=== PATIENT | female | born 1960 ===

== ENCOUNTER 2016-11-05 10:30 | Day surgery (SDC) | payer BC ==
--- NOTE | ~2016-11-05 | EGD ---
EGD REPORT [facility] [address] [address] NAME: YOLETTE GALDAMEZ : 62 STATUS : REG [facility]#: [id number] AGE: 56 ADM/REG DATE : 11/05/16 MR#: [id number] REPORT SERV DATE: 11/05/16 DICTATED BY: MIRELLA HENDERSON DATE: 11/05/16 REPORT STATUS : Draft TRANSCRIBED BY: [facility] DATE: 11/05/16 [facility] Center Patient Name: Yolette Galdamez Date of : 1960 Attending MD: MIRELLA HENDERSON MD Procedure Date No Time: 11/05/2016 Procedure: Colonoscopy Indications: Screening for colorectal malignant neoplasm Referring MD: HERBERT ANDREA Medicines: Monitored Anesthesia Care Complications: No immediate complications. Procedure: Pre-Anesthesia Assessment: - ASA Grade Assessment: III - A patient with severe systemic disease. After I obtained informed consent, the scope was passed under direct vision. Throughout the procedure, the patient's blood pressure, pulse, and oxygen saturations were monitored continuously. The CF [id number] was introduced through the anus and advanced to the terminal ileum, with identification of the appendiceal orifice and IC valve. The colonoscopy was performed without difficulty. The patient tolerated the procedure well. The quality of the bowel preparation was good. Findings: A sessile polyp was found in the sigmoid colon. The polyp was 3 mm in size. The polyp was removed with a cold biopsy forceps. Resection and retrieval were complete. Hemorrhoids were found during retroflexion and were mild. The terminal ileum appeared normal. Impression: - One 3 mm polyp in the sigmoid colon. Resected and retrieved. - Hemorrhoids. Recommendation: - Patient has a contact number available for emergencies. The signs and symptoms of potential delayed complications were discussed with the patient. Return to normal activities tomorrow. Written discharge instructions were provided to the patient. - Regular diet. - Continue present medications. - Await pathology results. - Repeat colonoscopy in 5-10 years for surveillance based on pathology results. EGD REPORT [facility] [address]. [id number] NAME: YOLETTE GALDAMEZ : [birth year] STATUS : REG [facility]#: [id number] AGE: 56 ADM/REG DATE : 11/05/16 MR#: [id number] REPORT SERV DATE: 11/05/16 DICTATED BY: MIRELLA HENDERSON DATE: 11/05/16 REPORT STATUS : Draft TRANSCRIBED BY: [employer] DATE: 11/05/16 Procedure Code(s): --- Professional --- 19408, Colonoscopy, flexible, proximal to splenic flexure; with biopsy, single or multiple Diagnosis Code(s): --- Professional --- D12.5, Benign neoplasm of sigmoid colon K64.9, Unspecified hemorrhoids Z12.11, Encounter for screening for malignant neoplasm of colon CPT copyright 2013 [employer]. All rights reserved. The codes documented in this report are preliminary and upon cloth inspector review may be revised to meet current compliance requirements. MIRELLA HENDERSON MD 11/05/2016 12:29 PM This report has been signed electronically. Number of Addenda: 0 Note Initiated On: 11/05/2016 12:[address] [place], [place] [address] [address]
[~2016-11-05 10:30] MED LIST: ACET500CAP PO; DIOV80 PO; MINIVELLE1 EAC1 TOP; MULTIVIT/MIN PO; NORCO1 TA2 PO; PREV30 PO; PROMETRIUM200 MG PO; VITAMIN D2000 UNIT PO; ZANTAC150 MG PO
== END 2016-11-05 23:59 | disposition home health service (06) ==
LOC: DMU 10:30
PROVIDERS: Internal Medicine Gastroenterology
PROC: 0DBN8ZX Excision of Sigmoid Colon, Via Natural or Artificial Opening Endoscopic, Diagnostic (ICD-10-PCS; principal; 2016-11-05 11:30)
DX: Z12.11 Encounter for screening for malignant neoplasm of colon (principal); K64.9 Unspecified hemorrhoids; I10 Essential (primary) hypertension; K21.9 Gastro-esophageal reflux disease without esophagitis; M19.90 Unspecified osteoarthritis, unspecified site; E66.01 Morbid (severe) obesity due to excess calories; Z79.899 Other long term (current) drug therapy; Z87.891 Personal history of nicotine dependence; Z88.8 Allergy status to other drugs, medicaments and biological substances; Z98.890 Other specified postprocedural states
CPT/HCPCS: 88305